=== PATIENT | male | born 1950 | race Caucasian/White ===

== ENCOUNTER → 2017-04-02 | Day surgery (SDC) | payer MEDICARE, MEDICAID ==
[~2017-04-02] VITALS: Ht 170.2 cm; Wt 83.9 kg
[~2017-04-02] MED LIST: ASPI-1035 PO; ATROPINE SULFATE 0.4MG/ML VIAL ONE; BACITRACIN 50,000 UNITS/VIAL ONE; BACITRACIN ZINC 15GM TUBE TOP ONE; BUPIVACAINE HCL/PF 0.5% (5MG/ML) 10ML ONE; CEFAZOLIN SODIUM 1000MG/VIAL ONE; DEXAMETHASONE 4MG/ML 1ML VIAL ONE; EPHEDRINE SULFATE 50MG/ML VIAL ONE; ESMOLOL HCL 10MG/ML 10ML VIAL IV ONE; FENTANYL CITRATE/PF 50MCG/ML 2ML VIAL IV PRN; HYDR-3511 PO; KETOROLAC 60MG/2ML VIAL IM ONE; LACTATED RINGERS 1,000 ML IV SCH; LIDOCAINE HCL 1% 20ML VIAL (Pyxis) INJ ONE; LISI-604 PO; NORMAL SALINE 0.9% 10 ML SYR ONE; ONDANSETRON HCL 4MG/2ML VIAL IV PRN; ONDANSETRON HCL 4MG/2ML VIAL ONE; PROPOFOL 200MG/20ML VIAL IV ONE; ROCURONIUM BROMIDE 10MG/ML VIAL 5ML IV ONE; SKIN ADHESIVE 0.7 GM EA TOP ONE; TRAM50TA73 PO
== END | disposition home or self-care (01) ==
LOC: OR 05:34
PROVIDERS: ATTEND Specialist
DX: K40.31 Unilateral inguinal hernia, with obstruction, without gangrene, recurrent (principal)
CPT/HCPCS: 49521; A4216; C1781; J0171; J0461; J0690; J1100; J1885; J2405; J3490; J7120; J2704